=== PATIENT | male | born 1975 | race African-American/Black ===

== ENCOUNTER 2022-05-13 11:16 | Emergency (ER) | payer OTHER ==
[~2022-05-13] VITALS: Ht 172.7 cm; Wt 109.0 kg
[2022-05-13 11:24] VITALS: BP 173/77
[2022-05-13] MEDS ORDERED: MECLIZINE 25MG TABLET PO ONE (14:00)
[2022-05-13] MEDS ORDERED: MECL-159 MT (15:14)
== END 2022-05-13 15:39 | disposition home or self-care (01) ==
LOC: ER 11:16
DX: R42 Dizziness and giddiness (principal); R03.0 Elevated blood-pressure reading, without diagnosis of hypertension; G47.30 Sleep apnea, unspecified; Z88.0 Allergy status to penicillin
CPT/HCPCS: 99282; J8597